=== PATIENT | female | born 1930 | race African-American/Black ===

== ENCOUNTER 2016-09-28 15:03 | Inpatient (IN) | payer MEDICARE, OTHER ==
[~2016-09-28 15:03] MED LIST: COZAAR100 MG PO; MAXZIDE 37.5 M1 EACH PO; METFORMIN HCL500 MG PO; PANTOPRAZOLE SO40 MG PO; PEPCID20 MG PO; TYLENOL #31 EACH PO; ZOCOR40 MG PO
[2016-09-29 05:22] LABS: HCT 29.3 % (37.0-47.0); HGB 9.6 g/dl (12.5-16.0); MCH 27.3 pg (25.0-31.0); MCHC 32.8 g/dL (32.0-36.0); MCV 83.2 fL (78.0-100.0); MPV 8.2 fL (6.0-9.5); RBC 3.52 M/uL (4.20-5.40); RDW 14.6 % (11.5-14.0); WBC 9.5 K/uL (4.0-10.5)
[2016-09-29 05:32] LABS: INR 1.66 (0.9-1.2); PROTHROMBIN TIME 19.1 SECONDS (11.7-14.0)
[2016-09-29 05:38] LABS: CREATININE 0.6 mg/dL (0.5-1.0); POTASSIUM 4.3 mmol/L (3.5-5.1)
[2016-09-30 08:50] LABS: INR 1.89 (0.9-1.2); PROTHROMBIN TIME 21.1 SECONDS (11.7-14.0)
[2016-10-02 08:03] LABS: INR 2.42 (0.9-1.2); PROTHROMBIN TIME 25.7 SECONDS (11.7-14.0)
[2016-10-05 07:20] LABS: INR 2.65 (0.9-1.2); PROTHROMBIN TIME 27.6 SECONDS (11.7-14.0)
[2016-10-07 05:25] LABS: INR 3.14 (0.9-1.2); PROTHROMBIN TIME 31.5 SECONDS (11.7-14.0)
[2016-10-08 05:14] LABS: PROTHROMBIN TIME 30.4 SECONDS (11.7-14.0)
[2016-10-09 05:24] LABS: INR 2.16 (0.9-1.2); PROTHROMBIN TIME 23.5 SECONDS (11.7-14.0)
[2016-10-11 04:41] LABS: INR 2.38 (0.9-1.2); PROTHROMBIN TIME 25.3 SECONDS (11.7-14.0)
[2016-10-11] MEDS ORDERED: NORVASC2.5 MG PO (11:39)
[2016-10-11] MEDS ORDERED: LAXATIVE OF CHOICE (11:40)
[2016-10-11] MEDS ORDERED: FEOSOL325 MG PO (11:40)
[2016-10-11] MEDS ORDERED: COUMADIN5 MG PO (11:41)
[2016-10-11] MEDS ORDERED: PERCOCET 7.5/321 TAB PO (11:42)
== END 2016-10-11 11:10 | disposition home health service (06) | DRG 560 ==
LOC: FSNU 15:03
PROVIDERS: Nurse Practitioner Adult Health; ADMIT Internal Medicine
DX: Z47.1 Aftercare following joint replacement surgery (principal); N17.9 Acute kidney failure, unspecified; Z96.651 Presence of right artificial knee joint; E78.5 Hyperlipidemia, unspecified; K21.9 Gastro-esophageal reflux disease without esophagitis; I12.9 Hypertensive chronic kidney disease with stage 1 through stage 4 chronic kidney disease, or unspecified chronic kidney disease; E11.22 Type 2 diabetes mellitus with diabetic chronic kidney disease; N18.9 Chronic kidney disease, unspecified; Z79.84 Long term (current) use of oral hypoglycemic drugs; Z87.891 Personal history of nicotine dependence
CPT/HCPCS: 36415; 72100; 73502; 80048; 82962; 85610; 92523; 97110; 97116; 97161; 97166; 97530; 97530-GP; 97535

== ENCOUNTER 2020-10-15 12:08 | Inpatient (IN) | payer MEDICARE, OTHER ==
[~2020-10-15 12:08] MED LIST changes: +COUMADIN5 MG PO; +FEOSOL325 MG PO; +LAXATIVE OF CHOICE; +LIDOCAINE 5% P1 EACH TOP; +NORCO 5-325 TA1 EACH PO; +NORVASC2.5 MG PO; +PERCOCET 7.5/321 TAB PO
[2020-10-15 18:12] LABS: BASOPHIL 0.1 % (0-2); EOSINOPHIL 0.1 % (0-7); HCT 26.6 % (37.0-47.0); HGB 9.3 g/dl (12.5-16.0); LYMPHOCYTE 12.2 % (15-48); MCH 29.8 pg (25.0-31.0); MCV 85.3 fL (78.0-100.0); MONOCYTE 12.9 % (0-12); MPV 7.9 fL (6.0-9.5); NEUTROPHIL 74.2 % (41-80); NRBC 0; PLT 277 K/uL (150-400); RBC 3.12 M/uL (4.20-5.40); RDW 13.1 % (11.5-14.0); WBC 13.6 K/uL (4.0-10.5)
[2020-10-15 18:18] LABS: INR 1.21 (0.9-1.2); PROTHROMBIN TIME 14.5 SECONDS (11.4-13.6)
[2020-10-15 18:24] LABS: ALBUMIN 2.4 g/dL (3.4-5.0); ALKALINE PHOSHATASE 91 U/L (46-116); ALT 36 U/L (14-59); AST 24 U/L (15-37); BILIRUBIN - TOTAL 0.8 mg/dL (0.2-1.0); BUN 28 mg/dL (7-18); BUN/CREAT RATIO (CALC) 31.8 RATIO; C-REACTIVE PROTEIN >18.00 mg/dL (<=0.90); CHLORIDE 89 mmol/L (98-107); CO2 (BICARBONATE) 26 mmol/L (21-32); CREATININE 0.88 mg/dL (0.51-0.95); GLOBULIN (CALCULATION) 5.1 g/dL; GLUCOSE 174 mg/dL (74-106); POTASSIUM 3.5 mmol/L (3.5-5.1); TOTAL PROTEIN 7.5 g/dL (6.4-8.2)
[2020-10-15 18:37] LABS: INFLUENZA A NAA NEGATIVE (NEGATIVE)
[2020-10-15 18:39] LABS: CORONAVIRUS 2019 SARS-COV-2 POSITIVE (NEGATIVE)
[2020-10-15] MEDS ORDERED: TYLENOL #31 EACH PO (20:48)
[2020-10-15] MEDS ORDERED: LASIX20 MG PO (20:50)
[2020-10-15 21:02] LABS: BILIRUBIN NEGATIVE (NEGATIVE); BLOOD NEGATIVE Ery/uL (NEGATIVE); CLARITY CLEAR (CLEAR); COLOR YELLOW (YELLOW); GLUCOSE (U) TRACE mg/dL (NORMAL); LEUKOCYTES 1+ Leu/uL (NEGATIVE); NITRITE NEGATIVE (NEGATIVE); PROTEIN NEGATIVE (NEGATIVE); SPECIFIC GRAVITY 1.015 (1.001-1.030)
[2020-10-15 21:10] LABS: BACTERIA 2+
[2020-10-16] MEDS ORDERED: VITAMIN B-121000 MC1 PO (12:31)
[2020-10-16 15:25] LABS: HCT 27.5 % (37.0-47.0); HGB 9.3 g/dl (12.5-16.0); MCH 29.2 pg (25.0-31.0); MCHC 33.8 g/dL (32.0-36.0); MCV 86.2 fL (78.0-100.0); RBC 3.19 M/uL (4.20-5.40); RDW 12.9 % (11.5-14.0); WBC 10.4 K/uL (4.0-10.5)
[2020-10-16 15:52] LABS: BUN/CREAT RATIO (CALC) 33.3 RATIO; CREATININE 0.72 mg/dL (0.51-0.95); POTASSIUM 3.6 mmol/L (3.5-5.1)
--- NOTE | 2020-10-17 13:23 | NUR ---
ATTEMPTED CALL TO PT. ROOM SHE HAS COVID. PT. DID NOT ANSWER. TC TO TOMMIE KELLY AT [phone]. ADVISED HER THAT PT WILL NEED A SHELTER FACILITY. SHE ADVISED THAT PT. RESIDES WITH HER SISTER, QUIANA AT [phone]. ADVISED THAT I WOULD MAKE REFERRALS TO FACILITIES THAT ARE ACCEPTING OF COVID POS PT.
--- NOTE | 2020-10-17 14:34 | NUR ---
SPOKE WITH DAUGHTERS, QUIANA AND TOMMIE. ADVISED THAT A SKILLED NUSING FACILITY HAS BEEN FOUND THAT WILL ACCEPT COVID POS. [facility] IN [place]. GAVE THE ADDRESS AND FACILITY INFORMATION TO QUIANA. SHE IS IN AGREEMENT WITH PLACEMENT. REPORT NUMBER IS [phone]. FAX D/C SUMMARY TO [phone] AND [phone]. FACILITY ADDRESS IS [facility] LOC[facility] AT [address] [place] [address].
[2020-10-17] MEDS ORDERED: NORCO 5-325 TA1 EACH PO (15:15)
[2020-10-17] MEDS ORDERED: KEFLEX250 MG PO (15:29)
[2021-01-09] MEDS ORDERED: MACROBID100 MG PO (04:24)
== END 2020-10-17 19:20 | DRG 562 ==
LOC: FER 12:08 → FMS 16:37
PROVIDERS: Emergency Medicine; Internal Medicine; ADMIT Allergy & Immunology Allergy
PROC: 8E0ZXY6 Isolation (ICD-10-PCS; principal; 2020-10-15)
DX: S83.92XA Sprain of unspecified site of left knee, initial encounter (principal); U07.1 COVID-19; E87.1 Hypo-osmolality and hyponatremia; M25.862 Other specified joint disorders, left knee; M17.12 Unilateral primary osteoarthritis, left knee; I10 Essential (primary) hypertension; E78.5 Hyperlipidemia, unspecified; M81.0 Age-related osteoporosis without current pathological fracture; K21.9 Gastro-esophageal reflux disease without esophagitis; E11.36 Type 2 diabetes mellitus with diabetic cataract; I35.0 Nonrheumatic aortic (valve) stenosis; I27.20 Pulmonary hypertension, unspecified; W19.XXXA Unspecified fall, initial encounter; Y93.E1 Activity, personal bathing and showering; Y92.009 Unspecified place in unspecified non-institutional (private) residence as the place of occurrence of the external cause; Z79.84 Long term (current) use of oral hypoglycemic drugs; Z79.899 Other long term (current) drug therapy; Z90.710 Acquired absence of both cervix and uterus; Z98.890 Other specified postprocedural states
CPT/HCPCS: 36415; 73564; 73700; 80048; 80053; 81001; 85025; 85610; 86140; 93005; 97162; 97166; 97530; 97530-GP; 97535; G0378; J0696; J7120; U0002